=== PATIENT | female | born 2000 | race African-American/Black ===

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

== ENCOUNTER 2022-12-30 20:56 | Emergency (ER) | payer MEDICAID, OTHER ==
[~2022-12-30] VITALS: Ht 154.9 cm; Wt 52.0 kg
[2022-12-30 21:21] VITALS: BP 118/62; PULSE 96; RESP 17; O2SAT 100
[2022-12-30] MEDS ORDERED: ACETAMINOPHEN 325MG TABLET PO ONE (23:00)
[2022-12-30 23:19] VITALS: TEMP 98.8
== END 2022-12-30 23:57 | disposition home or self-care (01) ==
LOC: ER 20:56
DX: K08.89 Other specified disorders of teeth and supporting structures (principal); J45.909 Unspecified asthma, uncomplicated
CPT/HCPCS: 81025; 99282